=== PATIENT | female | born 1980 | race Caucasian/White ===

== ENCOUNTER → 2016-06-21 | Outpatient (CLI) | payer OTHER ==
[~2016-06-21] MED LIST: DEXT30CA6 PO; GADOBUTROL 7.5 MMOL/7.5 ML VIAL INT ART ONE; IOHEXOL 300 MG/ML 50 ML VIAL. INT ART ONE; LIDOCAINE 1% Multi-Dose 20 ML VIAL. ID ONE
--- NOTE | 2016-06-21 14:55 | KCIC ---
PROCEDURE MR arthrogram of the left shoulder HISTORY Pain after injury on June 09, 2015. TECHNIQUE Intra-articular contrast injected prior to the scan, and reported separately. The standard 4 plane sequences were obtained including ABER positioning. COMPARISON None FINDINGS The acromioclavicular joint is intact. There is a small full-thickness non retracted tear at the anterior supraspinatus footprint, about 1 cm diameter. Generalized rotator cuff tendinosis. No additional rotator cuff tear however. Contrast does spill into the subdeltoid bursa from the glenohumeral joint. Small tear of the superior labrum. The biceps tendon is intact. No evidence of a HAGL lesion. No advanced primary osteoarthritis. Bone marrow contusion at the anterior greater tuberosity, without evidence of a displaced fracture. No acute muscle tear. IMPRESSION 1. Small non retracted full-thickness tear of the anterior supraspinatus tendon footprint. 2. Superior labrum tear. Electronically signed by: Lizandro Briceno MD (Jun 21, 2016 14:54:28)
--- NOTE | 2016-06-21 14:58 | KCIC ---
PROCEDURE: Left shoulder injection using fluoroscopic guidance, prior to MR. HISTORY: Shoulder pain. TECHNIQUE: The procedure was explained to the patient as were potential risks, including among others infection, bleeding or allergic reaction. All questions were answered. Informed written and verbal consent was obtained. The shoulder was prepped and draped in the usual sterile manner. Following administration of local anesthetic, a 22-gauge needle was advanced into the anterior shoulder. Following negative aspiration, 12 cc of a solution of 5cc Omnipaque-300 contrast, 5 cc 1% lidocaine, 10 cc normal saline, and 0.1 cc gadolinium was injected without difficulty. The needle was removed. There was good hemostasis at the injection site. The patient left in stable condition without immediate complication. The patient was given postprocedural instructions, and instructed to contact us or the ER if there are any complications. A single spot image is obtained. FLUOROSCOPY TIME: 38 seconds Electronically signed by: Lizandro Briceno MD (Jun 21, 2016 14:57:00)
== END | disposition home or self-care (01) ==
LOC: KCIC 12:35
PROVIDERS: ATTEND Nurse Practitioner Family
DX: S43.492A Other sprain of left shoulder joint, initial encounter (principal); Z87.828 Personal history of other (healed) physical injury and trauma; X58.XXXA Exposure to other specified factors, initial encounter; Y93.89 Activity, other specified; Y92.89 Other specified places as the place of occurrence of the external cause; Y99.8 Other external cause status
CPT/HCPCS: 73040; 73222; Q9967; A9585